=== PATIENT | female | born 1960 | race Caucasian/White ===

== ENCOUNTER → 2016-08-28 | Outpatient (CLI) | payer MEDICARE ==
[~2016-08-28] MED LIST: COZAAR 25MG25 MG/TAB PO; HCTZ 25MG TAB25 MG PO; NAPROSYN 2250 MG/TAB PO; NITROSTAT0.4 MG/TAB SL; NORVASC 10MG10 MG PO; NORVASC 5MG5 MG/TAB PO; PERCOCET 325 MG1 TAB PO; PRINZIDE 12.5 M1 TA1 PO
== END ==
LOC: COL.RAD 09:45
DX: M96.1 Postlaminectomy syndrome, not elsewhere classified (principal)
CPT/HCPCS: A9585

== ENCOUNTER → 2017-03-20 | Outpatient (REF) | LOC: ZLAB.WCH 08:56 | DX: Z01.89 Encounter for other specified special examinations (principal) ==

== ENCOUNTER → 2017-05-15 | Outpatient (CLI) | payer MEDICARE | LOC: MHCPAIN 13:49 | DX: G89.29 Other chronic pain (principal); M47.27 Other spondylosis with radiculopathy, lumbosacral region; M53.3 Sacrococcygeal disorders, not elsewhere classified; M96.1 Postlaminectomy syndrome, not elsewhere classified | CPT/HCPCS: G0463 ==

== ENCOUNTER → 2017-06-18 | Outpatient (REF) | LOC: ZLAB.WCH 19:19 | DX: Z01.89 Encounter for other specified special examinations (principal) ==

== ENCOUNTER → 2017-06-21 | Outpatient (CLI) | payer MEDICARE | LOC: MHCPAIN 10:57 | DX: M53.3 Sacrococcygeal disorders, not elsewhere classified (principal); M96.1 Postlaminectomy syndrome, not elsewhere classified; Z98.1 Arthrodesis status | CPT/HCPCS: G0260; J1040; Q9967 ==

== ENCOUNTER → 2017-07-20 | Outpatient (CLI) | payer MEDICARE | LOC: MHCPAIN 11:31 | DX: G89.29 Other chronic pain (principal); M47.817 Spondylosis without myelopathy or radiculopathy, lumbosacral region; M54.16 Radiculopathy, lumbar region; M53.3 Sacrococcygeal disorders, not elsewhere classified; M96.1 Postlaminectomy syndrome, not elsewhere classified | CPT/HCPCS: G0463 ==

== ENCOUNTER → 2017-10-16 | Outpatient (CLI) | payer MEDICARE | LOC: MHCPAIN 12:00 | DX: G89.29 Other chronic pain (principal); M47.27 Other spondylosis with radiculopathy, lumbosacral region; M53.3 Sacrococcygeal disorders, not elsewhere classified; M96.1 Postlaminectomy syndrome, not elsewhere classified | CPT/HCPCS: G0463 ==

== ENCOUNTER → 2018-01-08 | Outpatient (CLI) | payer MEDICARE | LOC: MHCPAIN 13:54 | DX: G89.29 Other chronic pain (principal); M47.817 Spondylosis without myelopathy or radiculopathy, lumbosacral region; M54.16 Radiculopathy, lumbar region; M53.3 Sacrococcygeal disorders, not elsewhere classified; M96.1 Postlaminectomy syndrome, not elsewhere classified | CPT/HCPCS: G0463 ==

== ENCOUNTER → 2018-01-25 | Outpatient (REF) | LOC: ZLAB.WCH 09:17 | DX: Z01.89 Encounter for other specified special examinations (principal) ==

== ENCOUNTER → 2018-04-03 | Outpatient (CLI) | payer MEDICARE | LOC: MHCPAIN 10:31 | DX: G89.29 Other chronic pain (principal); M47.817 Spondylosis without myelopathy or radiculopathy, lumbosacral region; M54.16 Radiculopathy, lumbar region; M53.3 Sacrococcygeal disorders, not elsewhere classified; M96.1 Postlaminectomy syndrome, not elsewhere classified | CPT/HCPCS: G0463 ==

== ENCOUNTER → 2018-09-16 | Outpatient (CLI) | payer MEDICARE | LOC: MHCPAIN 10:31 | DX: G89.29 Other chronic pain (principal); M47.817 Spondylosis without myelopathy or radiculopathy, lumbosacral region; M54.16 Radiculopathy, lumbar region; M53.3 Sacrococcygeal disorders, not elsewhere classified; M47.812 Spondylosis without myelopathy or radiculopathy, cervical region | CPT/HCPCS: G0463 ==

== ENCOUNTER → 2018-12-17 | Outpatient (CLI) | payer MEDICARE | LOC: MHCPAIN 13:29 | DX: G89.29 Other chronic pain (principal); M47.817 Spondylosis without myelopathy or radiculopathy, lumbosacral region; M54.16 Radiculopathy, lumbar region; M53.3 Sacrococcygeal disorders, not elsewhere classified; M96.1 Postlaminectomy syndrome, not elsewhere classified | CPT/HCPCS: G0463 ==

== ENCOUNTER 2019-02-12 12:39 | Outpatient (RCR) | payer MEDICARE ==
[2019-03-29] MEDS ORDERED: PERCOCET 325 MG1 TA2 PO (06:54)
[2019-03-29] MEDS ORDERED: IBU800 M1 PO (06:55)
[2019-03-29] MEDS ORDERED: HYDRODIURIL50 MG PO (06:55)
[2019-03-29] MEDS ORDERED: CARDIZEM CD360 MG PO (06:56)
[2019-03-29] MEDS ORDERED: NEUPRO3 MG/24 HR TD (07:00)
[2019-03-29] MEDS ORDERED: NORCO 325 MG-51 TAB PO (09:39)
== END 2019-05-13 | disposition home or self-care (01) ==
LOC: WSST
DX: R13.14 Dysphagia, pharyngoesophageal phase (principal)

== ENCOUNTER → 2019-02-20 | Outpatient (CLI) | payer MEDICARE | LOC: COL.RAD 15:06 | DX: R13.10 Dysphagia, unspecified (principal) ==

== ENCOUNTER 2019-03-29 06:19 | Emergency (ER) | payer MEDICARE ==
[~2019-03-29] VITALS: Ht 167.6 cm; Wt 100.0 kg
[2019-03-29 06:29] VITALS: TEMP 97.5
[2019-03-29] MEDS ORDERED: PERCOCET 325 MG1 TA2 PO (06:54)
[2019-03-29] MEDS ORDERED: HYDRODIURIL50 MG PO (06:55)
[2019-03-29] MEDS ORDERED: IBU800 M1 PO (06:55)
[2019-03-29] MEDS ORDERED: CARDIZEM CD360 MG PO (06:56)
[2019-03-29] MEDS ORDERED: NEUPRO3 MG/24 HR TD (07:00)
[2019-03-29 07:14] LABS: BASO % 0.2 % (0.0-2.0); GRAN # 10.4 (1.4-6.5); GRAN % 85.6 % (42.2-75.2); HEMATOCRIT 43.2 % (37.0-47.0); HEMOGLOBIN 14.6 g/dl (12.5-16.0); LYMPH # 1.4 (1.2-3.4); LYMPH % 11.6 % (20.0-51.0); MEAN CELL VOLUME 89 fl (80.0-100.0); MEAN CORPUSCULAR HEMOGLOBIN 30 pg (27.0-31.0); MEAN CORPUSCULAR HGB CONC 34 g/dl (33.0-37.0); MEAN PLATELET VOLUME 9.4 fl (7.4-10.4); MONO # 0.2 (0.1-0.6); MONO % 1.9 % (1.7-9.3); PLATELET COUNT 285 K/mm3 (130-400); RED BLOOD COUNT 4.86 M/mm3 (4.10-5.30); REDCELL DISTRIBUTION WIDTH-CV 12.9 % (11.5-14.5)
[2019-03-29 07:18] LABS: PROTHROMBIN TIME 11.1 SECONDS (9.7-12.8)
[2019-03-29 07:21] LABS: PARTIAL THROMBOPLASTIN TIME 29.9 SECONDS (26.0-37.0)
[2019-03-29 07:31] LABS: ALANINE AMINOTRANSFERASE 40 U/L (9-52); ALBUMIN 4.9 gm/dL (3.5-5.0); ALKALINE PHOSPHATASE 114 U/L (50-136); ANION GAP 16 mmol/L (7-16); AST,SGOT 40 U/L (15-37); BILIRUBIN,TOTAL 0.4 mg/dL (0.0-1.0); BLOOD UREA NITROGEN 15 mg/dL (7-17); C-REACTIVE PROTEIN 1.2 mg/dL (0.0-0.9); CALCIUM 10.3 mg/dL (8.4-10.2); CARBON DIOXIDE 22 mmol/L (22-30); CHLORIDE 102 mmol/L (98-107); CREATININE, serum 0.65 (0.52-1.25); LIPASE 94 U/L (23-300); POTASSIUM 4.2 mmol/L (3.4-5.0); SODIUM 140 mmol/L (137-145); TOTAL PROTEIN 8.4 gm/dL (6.4-8.2)
[2019-03-29 07:33] LABS: GLUCOSE 401 mg/dL (74-106)
[2019-03-29 07:40] LABS: TROPONIN-I < 0.012 ng/mL (0.000-0.035)
[2019-03-29 08:02] LABS: COLLECTION METHOD CLEAN CATCH
[2019-03-29 08:17] LABS: MUCOUS Present /lpf; PH 6 (5-8); SQUAMOUS EPITHELIAL 0-2 /hpf; URINE APPEARANCE Clear; URINE BACTERIA None Seen /hpf; URINE BILIRUBIN Negative (NEGATIVE); URINE BLOOD Negative (NEGATIVE); URINE COLOR Yellow; URINE GLUCOSE 3+ (NEGATIVE); URINE KETONE 1+ (NEGATIVE); URINE LEUKOCYTE ESTERASE Negative (NEGATIVE); URINE NITRATE Negative (NEGATIVE); URINE PROTEIN(semi-quant) Negative (NEGATIVE); URINE RBC 0-2 /hpf; URINE UROBILINOGEN Negative (NEGATIVE)
[2019-03-29 09:38] LABS: TROPONIN-I < 0.012 ng/mL (0.000-0.035)
[2019-03-29 09:39] LABS: GLUCOSE 415 mg/dL (74-106)
[2019-03-29] MEDS ORDERED: NORCO 325 MG-51 TAB PO (09:39)
[2019-03-29 10:00] VITALS: BP 158/90; PULSE 81
== END 2019-03-29 10:00 | disposition home or self-care (01) ==
LOC: COL.ER 06:19
PROVIDERS: Family Medicine
DX: R10.13 Epigastric pain (principal); E11.9 Type 2 diabetes mellitus without complications; I10 Essential (primary) hypertension; Z90.710 Acquired absence of both cervix and uterus
CPT/HCPCS: J2270; J2405; J7030

== ENCOUNTER → 2019-05-06 | Outpatient (CLI) | payer MEDICARE ==
[~2019-05-06] MED LIST changes: +CARDIZEM CD360 MG PO; +HYDRODIURIL50 MG PO; +IBU800 M1 PO; +NEUPRO3 MG/24 HR TD; +NORCO 325 MG-51 TAB PO; +PERCOCET 325 MG1 TA2 PO
== END ==
LOC: MHCPAIN 12:27
DX: M47.817 Spondylosis without myelopathy or radiculopathy, lumbosacral region (principal); M54.16 Radiculopathy, lumbar region
CPT/HCPCS: G0463

== ENCOUNTER → 2019-07-30 | Outpatient (CLI) | payer MEDICARE | LOC: MHCPAIN 09:58 | DX: M54.5 Low back pain (principal); M47.26 Other spondylosis with radiculopathy, lumbar region; M96.1 Postlaminectomy syndrome, not elsewhere classified | CPT/HCPCS: G0463 ==

== ENCOUNTER → 2020-02-11 | Outpatient (CLI) | payer MEDICARE | LOC: MHCPAIN 13:21 | DX: M47.817 Spondylosis without myelopathy or radiculopathy, lumbosacral region (principal); M54.5 Low back pain; M53.3 Sacrococcygeal disorders, not elsewhere classified; G89.29 Other chronic pain; M96.1 Postlaminectomy syndrome, not elsewhere classified; M54.16 Radiculopathy, lumbar region | CPT/HCPCS: G0463 ==

== ENCOUNTER → 2020-05-04 | Outpatient (CLI) | payer MEDICARE | LOC: MHCPAIN 14:14 | DX: M47.817 Spondylosis without myelopathy or radiculopathy, lumbosacral region (principal); M54.5 Low back pain; M96.1 Postlaminectomy syndrome, not elsewhere classified; M53.3 Sacrococcygeal disorders, not elsewhere classified | CPT/HCPCS: G0463 ==

== ENCOUNTER → 2020-09-01 | Outpatient (CLI) | payer OTHER, MEDICAID | LOC: MHCPAIN 14:59 | DX: M47.817 Spondylosis without myelopathy or radiculopathy, lumbosacral region (principal); M53.3 Sacrococcygeal disorders, not elsewhere classified; M96.1 Postlaminectomy syndrome, not elsewhere classified; G89.29 Other chronic pain | CPT/HCPCS: G0463 ==

== ENCOUNTER → 2020-12-14 | Outpatient (CLI) | payer MEDICARE, MEDICAID | LOC: MHCPAIN 13:24 | DX: M47.816 Spondylosis without myelopathy or radiculopathy, lumbar region (principal); M96.1 Postlaminectomy syndrome, not elsewhere classified; M54.5 Low back pain; M53.3 Sacrococcygeal disorders, not elsewhere classified | CPT/HCPCS: G0463 ==

== ENCOUNTER → 2020-12-24 | Outpatient (CLI) | payer MEDICARE, MEDICAID | LOC: COL.RAD 10:03 | DX: M43.26 Fusion of spine, lumbar region (principal); M48.061 Spinal stenosis, lumbar region without neurogenic claudication | CPT/HCPCS: A9585 ==

== ENCOUNTER → 2021-03-10 | Outpatient (CLI) | payer MEDICARE, MEDICAID | LOC: MHCPAIN 12:40 | DX: M47.816 Spondylosis without myelopathy or radiculopathy, lumbar region (principal); M96.1 Postlaminectomy syndrome, not elsewhere classified; M53.3 Sacrococcygeal disorders, not elsewhere classified; M54.16 Radiculopathy, lumbar region | CPT/HCPCS: G0463; J1100; Q9967 ==

== ENCOUNTER → 2021-03-22 | Outpatient (CLI) | payer MEDICARE, MEDICAID | LOC: MHCPAIN 13:59 | DX: M47.816 Spondylosis without myelopathy or radiculopathy, lumbar region (principal); M53.3 Sacrococcygeal disorders, not elsewhere classified; M96.1 Postlaminectomy syndrome, not elsewhere classified; G89.29 Other chronic pain | CPT/HCPCS: G0463 ==

== ENCOUNTER → 2021-06-27 | Outpatient (CLI) | payer MEDICARE, MEDICAID | LOC: MHCPAIN 15:26 | DX: M47.816 Spondylosis without myelopathy or radiculopathy, lumbar region (principal); M54.50 Low back pain, unspecified; M96.1 Postlaminectomy syndrome, not elsewhere classified; M53.3 Sacrococcygeal disorders, not elsewhere classified | CPT/HCPCS: G0463 ==

== ENCOUNTER → 2021-10-05 | Outpatient (CLI) | payer MEDICARE, MEDICAID | LOC: MHCPAIN 13:31 | DX: M47.896 Other spondylosis, lumbar region (principal); M54.17 Radiculopathy, lumbosacral region; M96.1 Postlaminectomy syndrome, not elsewhere classified; G89.29 Other chronic pain | CPT/HCPCS: G0463 ==

== ENCOUNTER → 2023-06-27 | Outpatient (CLI) | payer MEDICARE | LOC: MHCPAIN 14:55 | DX: M48.061 Spinal stenosis, lumbar region without neurogenic claudication (principal); M96.1 Postlaminectomy syndrome, not elsewhere classified; E11.40 Type 2 diabetes mellitus with diabetic neuropathy, unspecified | CPT/HCPCS: G0463 ==